=== PATIENT | male | born 1985 | race Caucasian/White ===

== ENCOUNTER 2017-01-27 10:04 | Emergency (ER) | payer OTHER ==
[2017-01-27 10:06] VITALS: BP 151/96; PULSE 106; TEMP 98; O2SAT 98
--- NOTE | 2017-01-27 10:11 | PD ---
HPI Chief Complaint: Laceration/Skin Injury Time Seen by Provider: 10:11 Travel History International Travel<30 days: No Contact w/Intl Traveler<30days: No Traveled to known affect area: No History of Present Illness HPI 31-year-old male presents the emergency department with injury to the right proximal thumb. Patient states he got it jammed in a metal sliding glass door last evening approximately 6 PM. This caused a laceration across the palmar surface of the distal thumb between the DIP and MIP joints. Patient has no bony tenderness. He has full sensation and motion of the thumb. Currently bleeding is controlled. He is unsure of his last tetanus shot. Pain is 2 out of 10. He has no known drug allergies. [facility] Social History Alcohol Use: Yes Tobacco Use: No Substance Use: No Allergies-Medications (Allergen,Severity, Reaction): Coded Allergies: No Known Allergies (Unverified , 01/27/17) Review of Systems Except as stated in HPI: all other systems reviewed are Neg General / Constitutional: No: Fever Eyes: No: Visual changes HENT: No: Headaches Cardiovascular: No: Chest Pain or Discomfort Respiratory: No: Shortness of Breath Gastrointestinal: No: Abdominal Pain Genitourinary: No: Dysuria Musculoskeletal: No: Pain Skin: No Rash Neurologic: No: Weakness Psychiatric: No: Depression Endocrine: No: Polydipsia Hematologic/Lymphatic: No: Easy Bruising Physical Exam Narrative GENERAL: Patient is in no acute distress. SKIN: Warm and dry. Normal color. Normal turgor. Patient has a 2 cm linear laceration across the palmar surface of the proximal left thumb. There is also a small abrasion to the dorsal surface, with a small area of ecchymosis. No significant swelling is noted. HEAD: Atraumatic. Normocephalic. EYES: Pupils equal and round. No scleral icterus. No injection or drainage. ENT: No nasal bleeding or discharge. Mucous membranes pink and moist. NECK: Trachea midline. No JVD. CARDIOVASCULAR: Regular rate and rhythm. RESPIRATORY: No accessory muscle use. Clear to auscultation. Breath sounds equal bilaterally. GASTROINTESTINAL: Abdomen soft, non-tender, nondistended. Hepatic and splenic margins not palpable. MUSCULOSKELETAL: Extremities without clubbing, cyanosis, or edema. No obvious deformities. Range of motion is full in the right hand. Normal pincher strength. No other significant findings noted. NEUROLOGICAL: Awake and alert. No obvious cranial nerve deficits. Motor grossly within normal limits. Five out of 5 muscle strength in the arms and legs. Normal speech. PSYCHIATRIC: Appropriate mood and affect; insight and judgment normal. Data Data Last Documented VS Vital Signs Date Time Temp Pulse Resp B/P Pulse Ox O2 Delivery O2 Flow Rate FiO2 01/27/17 10:06 98.0 106 151/96 98 Orders Lidocai-Epi 1%-1:100,000 Inj (Xylocaine- (01/27/17 10:30) Tetanus/Diphtheria Tox Adult (Tetanus/Di (01/27/17 10:30) MDM Medical Decision Making Medical Screen Exam Complete: Yes Emergency Medical Condition: Yes Differential Diagnosis Crush injury. Laceration. Need for sutures. Need for tetanus. Narrative Course Patient is medically stable at time of exam. Patient is given tetanus 0.5 mg IM. Laceration is repaired after thorough cleansing. See procedure note. Dressing to remain in place for at least 2 days as instructed. Sutures should remain in for 10 days. Patient is placed on Keflex 500 mg 3 times a day 7 days. Patient is given ibuprofen 600 mg 4 times a day when necessary pain #40. Patient follow with his primary care physician or return here in 10 days for suture removal. Patient follow-up sooner with any worsening symptoms as needed. Procedures Procedure Narrative LACERATION LOCATION: Right palmar proximal thumb LENGTH: 2 cm NUMBER OF STITCHES/TUNG: 5 simple interrupted REPAIR: The area of the laceration was prepped with Betadine and sterilely draped. The laceration was infiltrated with 4 mL was 1% lidocaine with epi. The wound was copiously irrigated and explored without evidence of foreign body , tendon injury or neurovascular injury. The wound was closed using 5-0 Prolene. This was a single layer repair. A sterile dressing was applied. The patient was advised to keep the dressing clean and dry. Patient tolerated the procedure well. Diagnosis Primary Impression: Laceration of right thumb without complication Qualified Code: S61.011A - Laceration of right thumb without complication, initial encounter Referrals: Primary Care Physician Patient Instructions: Finger Laceration (ED), General Instructions, Tetanus (ED ) Additional Instructions: Laceration is repaired after thorough cleansing. Dressing to remain in place for at least 2 days as instructed. Sutures should remain in for 10 days. Patient is placed on Keflex 500 mg 3 times a day 7 days. Patient is given ibuprofen 600 mg 4 times a day when necessary pain #40. Patient follow with his primary care physician or return here in 10 days for suture removal. Patient follow-up sooner with any worsening symptoms as needed. Med/Other Pt SpecificInfo: Prescription(s) given Disposition: 01 DISCHARGE HOME Condition: Stable Vipin Padilla Jan 27, 2017 10:11
[2017-01-27] MEDS ORDERED: LIDOCAINE 1%/EPINEPHrine 1:100,000 SOLN 20 ML VIAL INFIL ONE (10:30)
[2017-01-27] MEDS ORDERED: TETANUS/DIPHTHERIA TOXOID ADULT 0.5 ML VIAL IM ONE (10:30)
[2017-01-27] MEDS ORDERED: CEPH500C PO (10:51)
[2017-01-27] MEDS ORDERED: IBUP-232 PO (10:51)
== END 2017-01-27 11:09 | disposition home or self-care (01) ==
LOC: NEPK 10:04
DX: S61.011A Laceration without foreign body of right thumb without damage to nail, initial encounter (principal); W23.0XXA Caught, crushed, jammed, or pinched between moving objects, initial encounter; Z23 Encounter for immunization
CPT/HCPCS: 12001; 90471; 90714